=== PATIENT | male | born 1980 | race Caucasian/White ===

== ENCOUNTER → 2017-11-08 06:40 | Day surgery (SDC) | payer MEDICARE ==
[~2017-11-08] VITALS: Ht 177.8 cm; Wt 75.8 kg
--- NOTE | ~2017-11-08 | OP ---
PATIENT NAME: MARLYN ZUÑIGA MEDICAL RECORD: [id number] :80 LOCATION:[facility] ADMISSION DATE: SURGEON: LAZARUS HADLEY MD DATE OF OPERATION: 11/08/2017 PREOPERATIVE DIAGNOSIS: Chronic pharyngitis. POSTOPERATIVE DIAGNOSIS: Chronic pharyngitis. PROCEDURE: Tonsillectomy and adenoidectomy. SURGEON: Lazarus Hadley MD ANESTHESIA: General orotracheal. BLOOD LOSS: Less than 5 cc. SPECIMENS: Right and left tonsil separately. COMPLICATIONS: None. DISPOSITION: Recovery stable. DESCRIPTION OF PROCEDURE: He was brought to the operating room and placed in supine position, sedated and intubated by anesthesia. The eyes were taped. Table was turned 90 degrees. Head drapes applied. He was positioned for tonsillectomy. Using a headlight, a Brynn-Vinny mouth gag was carefully inserted and elevated on a towel on his chest. The palate was examined and palpated was normal. A red rubber catheter was placed to the right side of the nose and the pharynx and grasped with tonsil clamp to retract the soft palate. Using a mirror, the nasopharynx was examined. There was actually significant adenoid tissue right up at the choanae. Suction cautery on a setting of 35 was used to ablate and suction that. There were no lesions. The rest of the choanae and nasopharynx was normal. He had large inferior turbinates. The red rubber catheter was let down and removed. The right tonsil was grasped at the superior pole with a straight Allis clamp. A spatula tip cautery on a setting of 9 was used to dissect out the tonsil along its capsule, preserving the anterior and posterior tonsillar pillar. The left tonsil was removed in the same fashion. Then, both sides of the nose were irrigated with saline. The pharynx was suctioned. Tonsillar fossae were agitated. Suction cautery on a setting of 20 was used control minimal oozing. With the field clean and dry, the Brynn-Vinny mouth gag was let down and removed. He was awakened, extubated, and transported to recovery in good condition. No complications. TRANSINT:[id number] Voice Confirmation ID: [id number] DOCUMENT ID: [id number] LAZARUS HADLEY MD at 1357 CC: [id number] DICTATION DATE: 11/08/17 1120 TALENT AGENT: 11/08/17 1317 [facility] 11/08/17 [facility] [address] [place] [address]
--- NOTE | ~2017-11-08 | HP ---
PATIENT: SILVA ZUÑIGA MEDICAL RECORD: [id number] ACCOUNT: [id number] [facility] AD[facility] DATE: 11/08/17 HISTORY AND PHYSICAL EXAMINATION Preoperative History and Physical HISTORY OF PRESENT ILLNESS: Silva is a 37-year-old with tonsil problems for years. He was set up for tonsillectomy last year in [place], but that was not done. He has been having persistent problems, he is being admitted for tonsillectomy. PAST MEDICAL HISTORY: Includes chronic tonsillitis, reactive airway disease, and reflux. He is HIV positive. PAST SURGICAL HISTORY: Includes wisdom teeth extraction. CURRENT MEDICATIONS: Flexeril, Zyprexa, Effexor, Klonopin, and Triumeq. ALLERGIES: ASPIRIN. PHYSICAL EXAMINATION: GENERAL: He is healthy-appearing, developmentally normal. FACE: Normal, symmetric, no lesions. EYES: Sclerae and conjunctivae are normal. EARS: Canals and TMs are normal. NOSE: No mass, polyps, or drainage. ORAL CAVITY AND OROPHARYNX: He has 3-4+ chronically infected appearing tonsils. Both tonsils looked the same. I do not see evidence of a primary tonsil lesion. NECK: No masses, no adenopathy. CHEST: Clear. CARDIOVASCULAR: Regular rate and rhythm, no murmur. EXTREMITIES: Normal. IMPRESSION: Chronic caseous tonsillitis. PLAN: Tonsillectomy with a possible adenoidectomy, but I do not expect much there. TRANSINT:[id number] Voice Confirmation ID: [id number] DOCUMENT ID: [id number] LAZARUS BROWN MD at 1356 CC: [id number] DICTATION DATE: 11/04/17 1521 [employer] INTERN: 11/04/17 1544 [facility] 11/08/17 [id number] [place] [address]
[~2017-11-08 06:40] MED LIST: CYCLOBENZAPRINE10 MG PO; EFFEXOR XR150 MG PO; TRIUMEQ TABLET1 EACH PO; ZYPREXA5 MG PO
[2017-11-08 07:33] VITALS: BP 104/58; Ht 177.8 cm; Wt 75.8 kg
== END | disposition home or self-care (01) ==
LOC: D.OPS 06:40
DX: J31.2 Chronic pharyngitis (principal); Z01.812 Encounter for preprocedural laboratory examination

== ENCOUNTER 2018-10-04 20:32 | Emergency (ER) | payer OTHER ==
[~2018-10-04] VITALS: Ht 177.8 cm; Wt 75.7 kg
[2018-10-04 20:34] VITALS: Ht 177.8 cm; Wt 75.7 kg
[2018-10-04] MEDS ORDERED: BUSPAR 15 MG TA15 MG PO (20:36)
[2018-10-04] MEDS ORDERED: ROBAXIN500 MG PO (20:36)
[2018-10-04] MEDS ORDERED: BUPROPION HCL150 M1 PO (20:36)
[2018-10-04] MEDS ORDERED: PROTONIX40 MG PO (20:38)
[2018-10-04] MEDS ORDERED: SEROQUEL400 MG PO (20:38)
[2018-10-04 21:17] LABS: ALBUMIN 3.5 g/dL (3.4-5.0); ALKALINE PHOSPHATASE 95 U/L (46-116); ALT (SGPT) 16 U/L (10-68); BILIRUBIN - TOTAL 0.32 mg/dL (0.2-1.3); CALC OSMOLALITY 277 mosm/kg (275-300); CARBON DIOXIDE 21.8 mmol/L (21.0-32.0); CHLORIDE - SERUM 102 mmol/L (98-107); CREATININE - SERUM 1.3 mg/dL (0.6-1.3); GLUCOSE 134 mg/dL (74-106); POTASSIUM - SERUM 3.2 mmol/L (3.5-5.1); PROTEIN - SERUM 7.8 g/dL (6.4-8.2); SODIUM 138 mmol/L (136-145); UREA NITROGEN 12 mg/dL (7-18); eGFR NON AFRICAN AMERICAN 65 mL/min (90-120)
[2018-10-04 21:28] LABS: UDS - AMPHET NEGATIVE QUAL (NEGATIVE); UDS - BARB NEGATIVE QUAL (NEGATIVE); UDS - BENZO NEGATIVE QUAL (NEGATIVE); UDS - COCAINE NEGATIVE QUAL (NEGATIVE); UDS - OPIATE NEGATIVE QUAL (NEGATIVE); UDS - PCP NEGATIVE QUAL (NEGATIVE); UDS - THC POSITIVE QUAL (NEGATIVE)
[2018-10-04 21:29] LABS: CKMB 0.2 U/L (0.0-3.6); CREATINE KINASE 90 UL (21-232); MAGNESIUM - SERUM 1.7 mg/dL (1.8-2.4); THYROID STIMULATING HORMONE 0.52 uIU/mL (0.36-3.74)
[2018-10-04 21:31] LABS: INR 1.07 (0.85-1.17); PROTIME 13.4 SECONDS (11.6-15.0)
[2018-10-04 21:32] LABS: APTT 28.2 SECONDS (22.8-39.4)
[2018-10-04 21:33] LABS: D-DIMER-QUANTITATIVE 0.72 ug/mLFEU (0.20-0.54)
[2018-10-04 21:34] LABS: TROPONIN-I < 0.017 ng/mL (0.000-0.060)
[2018-10-04 21:55] LABS: BASOPHILS 0.2 % (0-2); EOSINOPHILS 0.9 % (0-7); HEMATOCRIT 40.3 % (42.0-54.0); HEMOGLOBIN 14.8 g/dL (13.5-17.5); IMMATURE GRANULOCYTES 0.2 % (0-5); LYMPHOCYTES 22.4 % (15-50); MCH 36.3 pg (26.0-34.0); MCHC 36.7 g/dL (31.0-37.0); MCV 98.8 fL (80.0-100.0); MEAN PLATELET VOLUME 10.2 fL (7.4-10.4); MONOCYTES 5.6 % (2-11); NEUTROPHILS 70.7 % (40-80); PLATELET COUNT 265 10x3/uL (130-400); RBC 4.08 10x6/uL (4.20-6.10); RDW 12.2 % (11.5-14.5)
[2018-10-04 21:58] LABS: APPEARANCE CLEAR (CLEAR); COLOR YELLOW (YELLOW)
[2018-10-04 21:59] LABS: BILIRUBIN NEGATIVE (NEGATIVE); GLUCOSE NEGATIVE (NEGATIVE); KETONE NEGATIVE (NEGATIVE); NITRITE NEGATIVE (NEGATIVE); PROTEIN NEGATIVE (NEGATIVE); UROBILINOGEN NORMAL (NORMAL)
[2018-10-04 22:00] LABS: BACTERIA FEW /hpf (NONE SEEN); RED CELLS - URINE OCC /hpf (0-5); WHITE CELLS - URINE OCC /hpf (0-5)
[2018-10-05] MEDS ORDERED: VIBRAMYCIN 100100 MG PO (00:03)
[2018-10-05 00:15] VITALS: BP 135/91
== END 2018-10-05 00:15 | disposition home or self-care (01) ==
LOC: D.ER 20:32
PROVIDERS: Family Medicine
DX: R00.0 Tachycardia, unspecified (principal); E87.6 Hypokalemia; B20 Human immunodeficiency virus [HIV] disease; F17.200 Nicotine dependence, unspecified, uncomplicated

== ENCOUNTER 2019-09-27 13:55 | Emergency (ER) | payer MEDICARE ==
[~2019-09-27] VITALS: Ht 177.8 cm; Wt 72.7 kg
[~2019-09-27 13:55] MED LIST changes: +BUPROPION HCL150 M1 PO; +BUSPAR 15 MG TA15 MG PO; +PROTONIX40 MG PO; +ROBAXIN500 MG PO; +SEROQUEL400 MG PO; +VIBRAMYCIN 100100 MG PO
[2019-09-27 14:21] VITALS: BP 106/60; Ht 177.8 cm; Wt 72.7 kg
[2019-09-27] MEDS ORDERED: SEROQUEL25 MG PO (14:24)
[2019-09-27] MEDS ORDERED: LAMICTAL25 MG (14:25)
[2019-09-27] MEDS ORDERED: ZOLOFT25 MG (14:25)
--- NOTE | 2019-09-27 15:39 | NUR ---
PT UNABLE TO BE LOCATED. ATTEMPTED ASSESSMENT TWICE. ED STAFF AWARE OF PT NOT IN ROOM.
== END 2019-09-27 15:24 | disposition left against medical advice (07) ==
LOC: D.ER 13:55
DX: M79.675 Pain in left toe(s) (principal); J45.909 Unspecified asthma, uncomplicated; Z72.0 Tobacco use; Z21 Asymptomatic human immunodeficiency virus [HIV] infection status